=== PATIENT | male | born 1945 | race Caucasian/White ===

== ENCOUNTER 2023-06-25 22:59 | Emergency (ER) | payer OTHER, MEDICARE, SELFPAY ==
[2023-06-25] VITALS (7 sets, daily range): BP systolic 127; BP diastolic 85; PULSE 77–93; RESP 24; TEMP 36; O2SAT 87–91
--- NOTE | 2023-06-25 23:11 | CRLHL7_ITS ---
For Patients: As a result of the Cures Act, medical imaging exams and procedure reports are released immediately into your electronic medical record. You may view this report before your referring provider. If you have questions, please contact your health care provider. INDICATION: Fall with frontal impact TECHNIQUE: CT cervical spine without contrast. 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 There is a transverse fracture through the C4 vertebral body. There is no involvement of the posterior elements for transverse foramina. No additional fracture or subluxation identified. Moderate multilevel degenerative facet disease. IMPRESSION: 1. Acute transverse fracture through the C4 vertebral body. This is in the setting ankylosis of the spine. Findings discussed with Dr. Garcia at 1:55 a.m. on June 26, 2023. Please note that all CT scans at this facility use dose modulation, iterative reconstruction, and/or weight-based dosing when appropriate to reduce radiation dose to as low as reasonably achievable. Dictated by Elaine Villalobos MD @ 06/26/2023 1:43:34 AM (Electronically Signed)
--- NOTE | 2023-06-25 23:11 | CRLHL7_ITS ---
For Patients: As a result of the Century Cures Act, medical imaging exams and procedure reports are released immediately into your electronic medical record. You may view this report before your referring provider. If you have questions, please contact your health care provider. INDICATION: Fall with frontal impact TECHNIQUE: Head CT without contrast. COMPARISON: None FINDINGS: CSF spaces: Within normal limits for age. Brain parenchyma: There are nonspecific low attenuation white matter changes consistent with chronic microvascular disease. No sign of mass, hemorrhage, or midline shift. Skull base and calvarium: Air-fluid level in the right maxillary sinus. The mastoid air cells demonstrate no acute or significant findings. The visualized orbits are grossly unremarkable. No skull fractures. There are minimally displaced bilateral nasal bone fractures and a fracture the bony nasal septum. There is a lytic lesion within the anterior mandible measuring 1.5 x 1.5 cm. There is anterior cortical breakthrough. There is intracranial atherosclerosis. IMPRESSION: 1. No acute intracranial hemorrhage or skull fracture. There is a right frontal scalp contusion and laceration containing several foreign bodies measuring up to 3 mm in size. 2. Minimally displaced bilateral nasal bone fractures. Fracture of the bony nasal septum. 3. Nonspecific white matter disease, typical of chronic microvascular disease. 4. Lytic lesion in the midline anterior mandible. There is anterior cortical breakthrough. 5. Air-fluid level in the right maxillary sinus may represent acute sinusitis. Please note that all CT scans at this facility use dose modulation, iterative reconstruction, and/or weight-based dosing when appropriate to reduce radiation dose to as low as reasonably achievable. Dictated by Elaine Villalobos MD @ 06/26/2023 1:28:08 AM (Electronically Signed)
--- NOTE | 2023-06-25 23:11 | CRLHL7_ITS ---
For Patients: As a result of the Century Cures Act, medical imaging exams and procedure reports are released immediately into your electronic medical record. You may view this report before your referring provider. If you have questions, please contact your health care provider. INDICATION: Trauma TECHNIQUE: CT chest without contrast. COMPARISON: None FINDINGS: Cardiovascular structures: Heart size is normal. Thoracic aorta and main pulmonary artery are normal in caliber. Mediastinum and nahum: No sign of mass or adenopathy. Lungs: Emphysema. Basilar atelectasis. Pleura and pericardium: No effusions. Chest wall and axilla: No mass or adenopathy. Bones: Old left rib fractures. Additionally there is acute appearing anterior left 7th rib fracture. Upper abdomen: Unremarkable. IMPRESSION: 1. No acute pulmonary findings. 2. Acute anterior left 7th rib fracture. Old left-sided rib fractures also seen. Please note that all CT scans at this facility use dose modulation, iterative reconstruction, and/or weight-based dosing when appropriate to reduce radiation dose to as low as reasonably achievable. Dictated by Nehal Guadarrama MD @ 06/27/2023 1:50:02 PM (Electronically Signed)
--- NOTE | 2023-06-25 23:11 | CRLHL7_ITS ---
For Patients: As a result of the Century Cures Act, medical imaging exams and procedure reports are released immediately into your electronic medical record. You may view this report before your referring provider. If you have questions, please contact your health care provider. INDICATION: Fall with frontal impaction TECHNIQUE: CT maxillofacial without contrast. COMPARISON: None FINDINGS: Facial bones: Minimally displaced bilateral nasal bone fractures. Fracture of the bony nasal septum. 1.5 cm lytic lesion within the anterior midline mandible with anterior cortical breakthrough. Orbits and globes: Unremarkable. Sinuses: Air-fluid level in the right maxillary sinus. Soft tissues: Right frontal scalp laceration and contusion with multiple small foreign bodies.. IMPRESSION: 1. Minimally displaced bilateral nasal bone fractures. 2. Fracture of the bony nasal septum. 3. Lytic lesion in the anterior midline mandible with anterior cortical breakthrough. 4. Air-fluid level in the right maxillary sinus could represent acute sinusitis. Please note that all CT scans at this facility use dose modulation, iterative reconstruction, and/or weight-based dosing when appropriate to reduce radiation dose to as low as reasonably achievable. Dictated by Elaine Villalobos MD @ 06/26/2023 1:56:17 AM (Electronically Signed)
--- NOTE | 2023-06-25 23:12 | ED.GENADULT ---
HPI - General Adult General Time Seen by Provider: 23:13 Date Seen: 06/25/23 Chief complaint: Fall/Minor Trauma Stated complaint: Fall Time Seen by Provider: 06/25/23 23:17 Source: patient and EMS Mode of arrival: EMS Limitations: altered mental status (Intoxication) History of Present Illness HPI narrative: 77-year-old male brought in by ambulance after a fall. Unwitnessed fall, patient reports that he tripped and hit his head. He has no complaints at this time. He does report he takes a blood thinner for atrial fibrillation, also reports the recently was at the [facility] wear he underwent unsuccessful cardioversion. Related Data Allergies Allergy/AdvReac Type Severity Reaction Status Date / Time No Known Drug Allergies Allergy Verified 06/25/23 23:13 PFSH PFS Social History Smoking Status: Never smoker Do you use any of these nicotine containing products: None Second hand tobacco smoke exposure: No How often do you have a drink containing alcohol: 4 or more times a week AUDIT-C Alcohol total score: 4 Non-prescribed substance use: denies use service: Yes Exam Narrative: Exam Narrative: Airway- intact, poor dentition Breathing- nonlabored, lungs are clear Circulation- heart is regular Disability- GCS 15, moves all extremities, no midline cervical tenderness, no midline lumbar thoracic tenderness General: Well-developed and well-nourished, no acute distress Head: Blood soaked gauze on the left forehead Eyes: Pupils are equal reactive, extraocular motions intact, conjunctiva clear ENT: Blood in the nares bilaterally, abrasion of the nasal bridge, abrasion of the chin Neck: No midline cervical tenderness, full spontaneous range of motion the neck, trachea midline, no adenopathy Heart: Regular rate and rhythm no murmurs or thrills Lungs: Clear to auscultation bilaterally without wheezes or crackles Abdomen: Soft, nontender, nondistended with active bowel sounds Musculoskeletal: No tenderness, deformity, or edema Neurologic: Awake, alert, and oriented x3, no gross focal neurologic deficits, cranial nerves intact as tested Psych: Mood and affect are appropriate Skin: No rashes Const: Vital Signs, click to edit/add: Vital Signs - 24 hr 06/25/23 23:05 06/25/23 23:27 06/25/23 23:44 Temperature 96.8 F L Pulse Rate 80 88 Pulse Rate [Pulse Oximeter] 77 Respiratory Rate 24 Blood Pressure Blood Pressure [Le ft Upper Arm] 127/85 Pulse Oximetry 88 91 87 L Oxygen Delivery Me thod Room Air 06/25/23 23:45 06/25/23 23:50 06/25/23 23:55 Temperature Pulse Rate 81 87 89 Pulse Rate [Pulse Oximeter] Respiratory Rate Blood Pressure Blood Pressure [Le ft Upper Arm] Pulse Oximetry 89 91 91 Oxygen Delivery Me thod 06/25/23 23:56 06/26/23 00:00 06/26/23 00:05 Temperature Pulse Rate 93 92 87 Pulse Rate [Pulse Oximeter] Respiratory Rate Blood Pressure 138/113 H Blood Pressure [Le ft Upper Arm] Pulse Oximetry 91 89 87 L Oxygen Delivery Me thod 06/26/23 00:06 06/26/23 00:10 06/26/23 00:13 Temperature Pulse Rate 99 86 98 Pulse Rate [Pulse Oximeter] Respiratory Rate Blood Pressure 160/116 H Blood Pressure [Le ft Upper Arm] Pulse Oximetry 91 87 L 87 L Oxygen Delivery Me thod 06/26/23 00:15 06/26/23 00:20 06/26/23 00:23 Temperature Pulse Rate 94 92 90 Pulse Rate [Pulse Oximeter] Respiratory Rate Blood Pressure 156/146 H Blood Pressure [Le ft Upper Arm] Pulse Oximetry 91 92 92 Oxygen Delivery Me thod 06/26/23 00:25 06/26/23 00:30 06/26/23 00:33 Temperature Pulse Rate 90 93 82 Pulse Rate [Pulse Oximeter] Respiratory Rate Blood Pressure 172/128 H Blood Pressure [Le ft Upper Arm] Pulse Oximetry 92 91 92 Oxygen Delivery Me thod 06/26/23 00:35 06/26/23 00:40 06/26/23 00:42 Temperature Pulse Rate 88 90 86 Pulse Rate [Pulse Oximeter] Respiratory Rate Blood Pressure 188/139 H Blood Pressure [Le ft Upper Arm] Pulse Oximetry 92 90 90 Oxygen Delivery Me thod 06/26/23 00:45 06/26/23 00:50 06/26/23 00:53 Temperature Pulse Rate 92 94 87 Pulse Rate [Pulse Oximeter] Respiratory Rate Blood Pressure 121/65 Blood Pressure [Le ft Upper Arm] Pulse Oximetry 91 89 91 Oxygen Delivery Me thod 06/26/23 00:55 06/26/23 01:00 06/26/23 01:04 Temperature Pulse Rate 82 91 94 Pulse Rate [Pulse Oximeter] Respiratory Rate Blood Pressure 177/137 H Blood Pressure [Le ft Upper Arm] Pulse Oximetry 90 91 91 Oxygen Delivery Me thod 06/26/23 01:05 06/26/23 01:10 06/26/23 01:13 Temperature Pulse Rate 88 88 87 Pulse Rate [Pulse Oximeter] Respiratory Rate Blood Pressure 189/125 H Blood Pressure [Le ft Upper Arm] Pulse Oximetry 90 91 90 Oxygen Delivery Me thod 06/26/23 01:15 06/26/23 01:20 06/26/23 01:23 Temperature Pulse Rate 82 94 87 Pulse Rate [Pulse Oximeter] Respiratory Rate Blood Pressure 189/115 H Blood Pressure [Le ft Upper Arm] Pulse Oximetry 90 91 90 Oxygen Delivery Me thod 06/26/23 01:24 06/26/23 01:25 Temperature Pulse Rate 86 103 H Pulse Rate [Pulse Oximeter] Respiratory Rate Blood Pressure Blood Pressure [Le ft Upper Arm] Pulse Oximetry 91 93 Oxygen Delivery Me thod Course Course ED Course: Patient seen examined, prior records are reviewed. Patient presents today after a fall, he reports that he tripped and fell but unwitnessed. Obvious scalp injury which is dressed currently, also facial abrasions and contusions and question of crepitus on chest exam. Labs are ordered along with CT scan of the head, neck, and chest. Reevaluation(s) Time of Reevaluation #1: 00:04 Reevaluation #1: CT scan of the head independently interpreted by me does not demonstrate any acute intracranial findings. CT scan of the face independently interpreted by me with multiple nasal bone fractures, no other facial fractures. CT scan of the chest independently interpreted by me does not demonstrate hemothorax or pneumothorax, no rib fractures. Time of Reevaluation #2: 00:53 Reevaluation #2: Patient reexamined after wounds clean. 2 cm laceration of the left eyebrow repaired per procedure note below. Small abrasion of the right parietal area and also abrasion of the left nostril and left side of the chin, no repair is needed. Labs ordered a.m. independently interpreted by me with normal CBC, mild hypo natremia, otherwise reassuring basic panel, alcohol level 0.26, troponin negative. Pending CT results, anticipate discharge. Laceration repair, left forehead/eyebrow, 2 cm irregular. Risks and benefits discussed with the patient, verbal consent was obtained. Lidocaine 1% with epinephrine 3 mL total injected into the edges the wound. Cleansed with wound cleanser as well as normal saline irrigation. Wound was explored, removal of two small stones, no other foreign bodies found. Laceration repaired with running 5 0 Ethilon suture. Patient tolerated this well. Time of Reevaluation #3: 01:43 Reevaluation #3: Reviewed radiology interpretation of CT scans, lytic lesion of the lower jaw noted which will need outpatient follow-up with primary care. Additional Reevaluation(s): 2:00 AM Care discussed with [facility] Dr. York, closed to transfers. Contacted [facility] in accepted by Trauma surgery, patient go to the emergency department in care was discussed with Dr. Payan. Updated patient with plan, he is agreeable. 3:00 a.m. patient removed cervical collar multiple times in spite of being verbally redirected and reinforced that patient has a cervical fracture. Vital Signs Vital signs: Initial Vital Signs Temperature 96.8 F L 06/25/23 23:05 Temperature Source Temporal Artery Scan 06/25/23 23:05 Pulse Rate 77 06/25/23 23:05 Respiratory Rate 24 06/25/23 23:05 Blood Pressure 127/85 06/25/23 23:05 Blood Pressure Mean 99 06/25/23 23:05 Pulse Oximetry 88 06/25/23 23:05 Oxygen Delivery Method Room Air 06/25/23 23:05 Vital Signs Temperature 96.8 F L 06/25/23 23:05 Pulse Rate 77 06/25/23 23:05 Respiratory Rate 24 06/25/23 23:05 Blood Pressure 127/85 06/25/23 23:05 Pulse Oximetry 88 06/25/23 23:05 Oxygen Delivery Method Room Air 06/25/23 23:05 Temperature 96.8 F L 06/25/23 23:05 Pulse Rate 103 H 06/26/23 01:25 Respiratory Rate 24 06/25/23 23:05 Blood Pressure 189/115 H 06/26/23 01:23 Pulse Oximetry 93 06/26/23 01:25 Oxygen Delivery Method Room Air 06/25/23 23:05 Medical Decision Making Lab Data Labs: Lab Results 06/25/23 06/25/23 06/25/23 Range/Units 23:00 23:11 23:20 WBC 8.74 (4.50-11.00) K/uL RBC 4.52 (4.30-5.90) m/uL Hgb 14.3 (13.5-17.5) gm/dL Hct 41.8 (37.0-53.0) % MCV 93 (80-100) fL MCH 32 (26-34) pg MCHC 34 (32-36) gm/dL RDW Coeff of Viktor 13.3 (11.5-15.5) % Plt Count 210 (140-440) K/uL Neut % (Auto) 47.2 (42.0-72.0) % Lymph % (Auto) 43.0 (20-44) % [place] % (Auto) 6.9 (0.0-11.0) % Eos % (Auto) 2.2 (0.0-7.0) % Baso % (Auto) 0.1 (0.0-3.0) % Neut # (Auto) 4.13 (1.7-7.0) K/uL Lymph # (Auto) 3.76 H (0.90-2.90) K/uL [place] # (Auto) 0.60 (0.00-0.90) K/UL Eos # (Auto) 0.19 (0.00-0.50) K/uL Baso # (Auto) 0.01 (0.00-0.30) K/uL Abs Immat Gran (auto) 0.05 (0.00-0.30) K/uL Imm/Tot Granulo (auto) 0.6 % INR 0.99 (0.91-1.10) Sodium 127 L (135-149) mmol/L Potassium 3.5 L (3.6-5.1) mmol/L Chloride 94 L (96-114) mmol/L Carbon Dioxide 19 L (20-32) mmol/L Anion Gap 14 (7-15) mEq/L BUN 9 (7-30) mg/dL Creatinine 0.7 (0.5-1.5) mg/dL Estimated GFR 96 ml/min Glucose 97 (60-115) mg/dL Calcium 8.9 (8.4-10.6) mg/dL Magnesium 1.8 (1.5-2.6) mg/dL Ethyl Alcohol 0.26 H (0.01-0.03) % POC Glucose 102 (60-115) mg/dl POC Troponin I 0.00 L (0.01-0.04) ng/ml Discharge Plan Discharge Clinical Impression: Closed fracture nasal bone, Alcohol intoxication, Abrasion of face, Forehead laceration, C4 cervical fracture Patient Disposition: [facility] Condition: Improved Additional Instructions: Sutures will need to be removed in 1 week There is a bony change of the lower jaw which will need outpatient follow-up. Talk to your primary care doctor about possible ENT referral or MRI for further evaluation Activity Level: Activity as Tolerated Discharge Diet: Regular
[2023-06-25 23:41] LABS: Chloride* 94 mmol/L (96-114); Sodium* 127 mmol/L (135-149)
[2023-06-25 23:44] LABS: Anion Gap 14 mEq/L (7-15); Blood Urea Nitrogen* 9 mg/dL (7-30); Carbon Dioxide* 19 mmol/L (20-32); Creatinine* 0.7 mg/dL (0.5-1.5); Estimated Glomerular Filt Rate 96 ml/min
[2023-06-25 23:45] LABS: Calcium* 8.9 mg/dL (8.4-10.6); Ethanol* 0.26 % (0.01-0.03); Glucose* 97 mg/dL (60-115)
[2023-06-25 23:47] LABS: Basophils Absolute Auto 0.01 K/uL (0.00-0.30); Basophils Percent Auto 0.1 % (0.0-3.0); Eosinophils Absolute Auto 0.19 K/uL (0.00-0.50); Eosinophils Percent Auto 2.2 % (0.0-7.0); Hematocrit 41.8 % (37.0-53.0); Hemoglobin* 14.3 gm/dL (13.5-17.5); Immature Granulocytes Abs Auto 0.05 K/uL (0.00-0.30); Immature Granulocytes Pct Auto 0.6 %; Lymphocytes Absolute Auto 3.76 K/uL (0.90-2.90); Mean Corpuscular HGB Conc 34 gm/dL (32-36); Mean Corpuscular Hemoglobin 32 pg (26-34); Mean Corpuscular Volume 93 fL (80-100); Monocytes Percent Auto 6.9 % (0.0-11.0); Neutrophils Absolute Auto 4.13 K/uL (1.7-7.0); Neutrophils Percent Auto 47.2 % (42.0-72.0); Platelet Count* 210 K/uL (140-440); RDW Coefficient of Variation % 13.3 % (11.5-15.5); Red Blood Count 4.52 m/uL (4.30-5.90); White Blood Count* 8.74 K/uL (4.50-11.00)
[2023-06-25 23:50] LABS: INR 0.99 (0.91-1.10); Prothrombin Time 13.7 Seconds
[2023-06-25 23:50] LABS: Glucose, Point-of-Care* 102 mg/dl (60-115)
[2023-06-26] VITALS (28 sets, daily range): BP systolic 121–189; BP diastolic 65–146; PULSE 82–103; O2SAT 87–93
[2023-06-26 00:04] LABS: Slide Review Reflex No
[2023-06-26 00:19] LABS: Potassium* 3.5 mmol/L (3.6-5.1)
[2023-06-26 00:22] LABS: Magnesium* 1.8 mg/dL (1.5-2.6)
--- NOTE | 2023-06-26 00:34 | ED.NURSE ---
Pt's head and face cleansed with NS and hibicleans. Laceration above left eyebrow. Abrasions to right sikh area, chin, upper lip, and nose. Area of edema and bruising under left eye, near cheekbone. Pt tolerated cleansing well.
--- NOTE | 2023-06-26 02:23 | ED.NURSE ---
dispatch contacted for patient transfer to [facility] ER. Patient transfer will be 1-2 hours pending 911 calls.
--- NOTE | 2023-07-01 16:39 | ED.NURSE ---
chart accessed to see when he should have his sutures removed. will [facility] in the morning to get an appointment for suture removal ass[facility].
== END 2023-06-26 04:05 | disposition short-term general hospital (02) ==
LOC: ED 06-26 02:23
PROVIDERS: Emergency Provider Family Medicine
DX: S12.300A Unspecified displaced fracture of fourth cervical vertebra, initial encounter for closed fracture (principal); S02.2XXA Fracture of nasal bones, initial encounter for closed fracture; S01.81XA Laceration without foreign body of other part of head, initial encounter; W19.XXXA Unspecified fall, initial encounter; F10.129 Alcohol abuse with intoxication, unspecified
CPT/HCPCS: 12011; 36415; 70450; 70486; 71250; 72125; 80048; 82077; 82947; 83735; 84484; 85025; 85610; 93005; 95992; 99285; 99291; G0390

== ENCOUNTER 2023-06-26 03:50 | Outpatient (CLI) | payer OTHER, SELFPAY | END 2023-06-26 03:51 | disposition home or self-care (01) | LOC: AMB 07-04 16:23 | PROVIDERS: Visit Provider Family Medicine | DX: S12.300S Unspecified displaced fracture of fourth cervical vertebra, sequela (principal) | CPT/HCPCS: A0425; A0426 ==

== ENCOUNTER 2024-05-31 12:28 | Outpatient (CLI) | payer OTHER, SELFPAY | END 2024-05-31 12:29 | disposition home or self-care (01) | LOC: AMB 06-05 23:26 | PROVIDERS: Visit Provider Family Medicine | DX: R55 Syncope and collapse (principal) | CPT/HCPCS: A0425; A0427 ==